=== PATIENT | male | born 1950 | race Two or more races ===

== ENCOUNTER 2017-10-29 03:40 | Emergency (ER) | payer OTHER ==
[~2017-10-29] VITALS: Ht 172.7 cm; Wt 131.5 kg
[~2017-10-29 03:40] MED LIST: ALB5IS NEB; AML5T PO; ATEN50TA PO; ATOR10TA52 PO; BUME2TAB3 PO; CARV6.25 PO; CETI10CH PO; CHOL20007 PO; CLOP75TA41 PO; DILT240C PO; FENO160T8 PO; FLUT50SP13; FURO40TA PO; GABA300C10 PO; GLYB5TAB8 PO; HYDR-4296 PO; INSLANTI SC; INSREGI SC; IPR002IS NEB; LEVO-28 PO; LISI-646 PO; LISI10TA6 PO; LOSA50TA6 PO; MER500PBAE IV; METF-370 PO; NITR0.4S29 SL; OMEP20TA PO; POTA10TA51 PO; SACC250C PO; SIMV-13 PO; VAN500I IV
[2017-10-29 04:31] LABS: Basophils # (auto) 0.1 uL; Basophils % (auto) 0.9 % (0.0-2.0); Eosinophils # (auto) 0.2 uL; Eosinophils % (auto) 1.4 % (0.0-7.0); Hematocrit 38.6 % (41.0-53.0); Hemoglobin 13.2 g/dL (13.5-17.5); Lymphocytes # (auto) 1.1 uL; Mean Corpuscular Hemoglobin 33.5 pg (28.0-32.0); Mean Corpuscular Hgb Conc. 34.1 g/dL (32.0-36.0); Mean Corpuscular Volume 98.4 fL (80.0-100.0); Monocytes # (auto) 0.7 uL; Monocytes % (auto) 6.7 % (0.0-12.0); Neutrophils # (auto) 8.8 uL; Nucleated Red Blood Cells % 0.1 %; Platelet Count (auto) 326 10^3/uL (140-450); Red Blood Cells 3.92 10^6/uL (4.5-5.90); White Blood Cell 10.8 10^3/uL (4.4-10.8)
[2017-10-29 04:48] LABS: INR 0.93 (0.9-1.15); Partial Thromboplastin Time 28.6 sec (23.78-33.04)
[2017-10-29 04:53] LABS: Albumin 3.3 g/dL (3.4-5.0); BUN/Creatinine Ratio 20.3; Bilirubin, Total 0.4 mg/dL (0.2-1.0); Calcium 8.6 mg/dL (8.5-10.1); Total Protein 7.1 g/dL (6.4-8.2)
[2017-10-29 05:54] VITALS: BP 184/99
[2017-10-29 05:59] LABS: Urine Bacteria NONE SEEN /hpf (None Seen); Urine Blood Negative /uL (Negative); Urine Specific Gravity 1.007 (1.001-1.035); Urine WBC 1 /hpf (0 - 3)
[2017-10-29] MEDS ORDERED: FUROSEMIDE 40 MG/4 ML VIAL IV ONE (06:30)
[2017-10-29] MEDS ORDERED: IOHEXOL 350 MG/ML 100ML IJ ONE (09:19)
[2017-10-29] MEDS ORDERED: glipiZIDE 5 MG TAB PO SCH (10:00)
[2017-10-29] MEDS ORDERED: PANTOPRAZOLE 40 MG TAB PO ONE (10:00)
[2017-10-29] MEDS ORDERED: ENALAPRILAT 1.25 MG/ML-1ML VIAL IV PRN (11:00)
[2017-10-29] MEDS ORDERED: NITROGLYCERIN 0.4 MG SL TAB SL PRN (11:15)
[2017-10-29] MEDS ORDERED: amLODIPine BESYLATE 5 MG TAB PO SCH (12:00)
[2017-10-29] MEDS ORDERED: CLOPIDOGREL BISULFATE 75 MG TAB PO SCH (12:00)
[2017-10-29] MEDS ORDERED: IPRATROPIUM BROM 0.5 MG/2.5ML INH SOL NEB SCH (14:00)
[2017-10-29] MEDS ORDERED: hydrALAZINE HCL 25 MG TAB PO SCH (14:00)
[2017-10-29] MEDS ORDERED: ALBUTEROL SULF 2.5 MG/0.5ML(0.5%) NEB SOLN NEB SCH (14:00)
[2017-10-29] MEDS ORDERED: INSULIN LANTUS (GLARGINE) 1 /0.01ml (100units/ml) SC SCH (22:00)
[2017-10-30] MEDS ORDERED: PATIENTS OWN MEDICATION (Lisinopril 40 MG) PO SCH (10:00)
[2017-10-30] MEDS ORDERED: LISINOPRIL 20 MG TAB PO SCH (10:00)
== END 2017-10-29 12:17 | disposition home or self-care (01) ==
LOC: EDUNIT# 03:40 → EDBD 03:40 → ER 03:49
DX: R07.89 Other chest pain (principal); R60.9 Edema, unspecified; I11.0 Hypertensive heart disease with heart failure; I50.9 Heart failure, unspecified; J44.9 Chronic obstructive pulmonary disease, unspecified; E11.9 Type 2 diabetes mellitus without complications; E78.5 Hyperlipidemia, unspecified; I25.2 Old myocardial infarction; I25.810 Atherosclerosis of coronary artery bypass graft(s) without angina pectoris; Z96.89 Presence of other specified functional implants
CPT/HCPCS: 36415; 71045; 71275; 80053; 81001; 82962; 83880; 84484; 85025; 85610; 85730; 93005; 93970; 94761; 96374; 99285; J1940; Q9967